=== PATIENT | female | born 1990 | race Asian ===

== ENCOUNTER 2019-07-27 01:59 | Inpatient (IN) ==
[2019-07-27] MEDS ORDERED: OXYTOCIN 30 UNITS/500 ML BAG IV PRN ×2 (03:40→09:41)
[2019-07-27] MEDS ORDERED: PENICILLIN G POTASSIUM 6 MU in DEXTROSE 5% 250 ML IV STA (03:40)
[2019-07-27] MEDS ORDERED: PENICILLIN G POTASSIUM 3 MU in DEXTROSE 5% 100 ML IV SCH (03:45)
[2019-07-27] MEDS: LACTATED RINGER'S 1,000 ML IV PRN ×4 (03:46→11:32)
[2019-07-27] MEDS ORDERED: BUTORPHANOL TARTRATE 1 MG/ML VIAL IV PRN (03:53)
[2019-07-27 04:09] LABS: Hematocrit (blood only) 33.5 % (37-47); Hemoglobin 11.3 g/dL (12.0-16.0); Mean Platelet Volume 10.8 fL (7.4-10.4); Platelet Count 134 K/uL (130-400); RDW Coefficient of Variation 13.7 % (11.5-14.5); RDW Standard Deviation 42.1 fL (36.4-46.3); Red Blood Count 3.94 M/uL (4.2-5.4); White Blood Count 8.01 K/uL (4.8-10.8)
[2019-07-27 04:12] LABS: Mean Corpuscular Hgb Conc 33.7 g/dL (32-36)
[2019-07-27] MEDS ORDERED: BUTORPHANOL TARTRATE 1 MG/ML VIAL ONE (04:17)
[2019-07-27] MEDS ORDERED: BUPIVACAINE 0.25% 30 ML VIAL ONE (04:21)
[2019-07-27] MEDS ORDERED: ePHEDrine sulfate 50 MG/ML AMP ONE (04:22)
[2019-07-27] MEDS ORDERED: fentaNYL 2MCG/ML ROPIV 1.25MG/ML 100 ML BAG EPI ONE (04:22)
[2019-07-27] MEDS ORDERED: fentaNYL citrate 100 MCG/2 ML VIAL ONE (04:22)
--- NOTE | 2019-07-27 04:42 | Anesthesiology Consultation ---
Date of Service July 27, 2019 Assessment & Plan Chart Review Chart Review: Acceptable Risk for Surgery, Patient NOT seen in Pre Admission Testing and Acceptable Risk for Labor Epidural Consults Requested none ASA ASA2 Proposed Anesthesia Anesthesia Type: General and Labor Epidural Risk / Benefits Reviewed With: PT / POA / Parent / Guardian, Accepts Plan and Informed Consent Obtained History Height/Weight Height: 5 ft 6.14 in Weight: 69.853 kg Allergies Allergy/AdvReac Type Severity Reaction Status Date / Time No Known Drug Allergies Allergy NKA Verified 07/27/19 02:40 Medications Home Medications Medication Instructions Recorded Confirmed Last Taken No Known Home Medications 07/07/19 07/27/19 Unknown Active Medications Generic Name Dose Route Start Last Admin Trade Name Freq PRN Reason Stop Dose Admin Lactated Ringer's 1,000 mls @ 125 mls/hr 07/27/19 03:40 07/27/19 03:46 Lr IV 07/29/19 03:39 999 mls/hr .Q8H PRN Administration L&D Protocol Protocol NPO Date Last Intake of Fluids: 07/27/19 Time Last Intake of Fluids: 03:00 Date Last Intake of Solids: 07/26/19 Time Last Intake of Solids: 18:30 Past Medical History Medical History Anemia GERD (gastroesophageal reflux disease) History of varicella Exercise / Class Metabolic Activity II 4-5 Yardwork/Stairs/Walk up hill Past Surgical History Surgical History No history of previous surgery Past Anesthesia History No Hx of Anesthesia Complications and No Family Hx of Anesthesia Complications History of PONV No Hx of PONV and No Hx of Motion Sickness Social History Smoking Status: Never smoker Hx Alcohol Use: No Hx Substance Use: No Physical Exam Vital Signs Last Vital Signs Temp 36.8 C 07/27/19 02:17 Pulse 98 H 07/27/19 04:37 Resp 16 07/27/19 02:15 BP 117/74 07/27/19 04:31 Pulse Ox 94 07/27/19 04:37 Constitutional not obese ENMT Mouth: + small oral opening; no dentition abnormality Thyromental Distance: < 3.5 Finger Breadths Mallampati Class: II Neck normal visual inspection and trachea midline; neck extension not limited Respiratory normal respiratory effort Auscultation: lungs clear to auscultation bilaterally Cardiovascular Rate/Rhythm: regular rate and regular rhythm Heart Sounds: no murmur Musculoskeletal Spine: lumbar spine normal to inspection; normal cervical ROM Neurologic moves all extremities Motor/Sensory: no sensory deficit Psychiatric Orientation: alert and oriented x 3 Testing Laboratory Results 07/27/19 03:58
[2019-07-27] MEDS ORDERED: NALBUPHINE HCL INJ 10 MG/ML AMP IV PRN ×2 (05:07→19:19)
[2019-07-27] MEDS ORDERED: NALOXONE HCL 1 MG in SODIUM CHLORIDE 0.9% 1000ML 1,000 ML IV PRN ×2 (05:07→19:19)
[2019-07-27] MEDS ORDERED: ePHEDrine sulfate 50 MG/ML AMP IV PRN ×2 (05:07→19:19)
[2019-07-27] MEDS ORDERED: DiphenhydrAMINE HCL 50 MG/ML VIAL IV PRN ×3 (05:07→21:20)
[2019-07-27] MEDS ORDERED: fentaNYL 2MCG/ML ROPIV 1.25MG/ML 100 ML BAG EPI PRN (05:07)
[2019-07-27] MEDS ORDERED: NALOXONE HCL 0.4 MG/1 ML VIAL/CARP IV PRN ×2 (05:07→19:19)
[2019-07-27] MEDS ORDERED: ONDANSETRON INJ 2 MG/ML 2 ML VIAL IV PRN (05:07)
[2019-07-27] MEDS ORDERED: PROMETHAZINE HCL 25 MG in SODIUM CHLORIDE 0.9% 50 ML IV PRN (05:07)
[2019-07-27] MEDS ORDERED: CITRIC ACID/SODIUM CITRATE 15 ML UDC PO SCH (06:00)
[2019-07-27] MEDS ORDERED: CEFAZOLIN 2000MG 2,000 MG/15 ML SYR IV SCH (06:00)
[2019-07-27] MEDS: PENICILLIN G POTASSIUM 3 MU in DEXTROSE 5% 100 ML IV PRN ×2 (11:33→15:42)
[2019-07-27] MEDS ORDERED: CITRIC ACID/SODIUM CITRATE 15 ML UDC ONE (18:05)
[2019-07-27] MEDS ORDERED: LACTATED RINGER'S 1,000 ML IV SCH ×3 (18:15→21:20)
[2019-07-27] MEDS ORDERED: LIDOCAINE/EPINEPHRINE 2% 1:200,000 20 ML SDV ONE (18:19)
[2019-07-27] MEDS ORDERED: OXYTOCIN 10 UNITS/ML VIAL ONE ×4 (18:19→19:18)
[2019-07-27] MEDS ORDERED: KETOROLAC 30 MG/ML VIAL ONE (18:19)
[2019-07-27] MEDS ORDERED: ONDANSETRON INJ 2 MG/ML 2 ML VIAL ONE (18:19)
[2019-07-27] MEDS ORDERED: MoRPHine SULFATE PF 1 MG/ML 10 ML AMP/VIAL ONE (18:20)
[2019-07-27] MEDS ORDERED: PHENYLEPHRINE 100MCG/ML 5ML SYR ONE (18:24)
[2019-07-27] MEDS ORDERED: LACTATED RINGER'S 500 ML IV PRN (19:19)
[2019-07-27] MEDS ORDERED: NALOXONE HCL 0.08 MG in SYRINGE 1.8 ML IV PRN (19:19)
[2019-07-27] MEDS ORDERED: HYDROmorphone INJ 0.5 MG/0.5 ML SYR IV PRN (19:19)
[2019-07-27] MEDS ORDERED: MoRPHine SULFATE PF 1 MG/ML 10 ML AMP/VIAL EPI SCH (19:19)
--- NOTE | 2019-07-27 19:26 | Post Operative Brief Note ---
PG Immediate Post Op with CF Date of Surgery July 27, 2019 Pre & Post Diagnosis Operation Date: 07/27/19 18:20 Pre-Op Diagnosis: intolerance to labor failure to descend Post-Op Diagnosis: intolerance to labor failure to descend Procedure Operation Date: 07/27/19 18:20 Actual Procedures p Section in LD, live female child at 1848 - Faby Toribio MD, FACOG Surgeon Faby Toribio MD, FACOG Probation Worker Dr. Akash Stone Estimated Blood Loss 500 Findings Consistent with Post-Op Diagnosis Specimens Specimen Description: 1. Cord Blood 2. Placenta, hold Drains Magaña Catheter
[2019-07-27] MEDS ORDERED: SODIUM CHLORIDE 0.9% 1000ML 1,000 ML IV SCH (19:30)
[2019-07-27] MEDS ORDERED: DC INTRASPINAL MORPHINE SCH (19:30)
[2019-07-27] MEDS ORDERED: NO NARCOTICS OR SEDATIVES SCH (19:30)
--- NOTE | 2019-07-27 20:46 | Anesthesiology Progress Note ---
Date of Service July 27, 2019 Anesthesia Post Procedure Vital Signs Vital Signs: Temp Pulse Resp BP Pulse Ox 07/27/19 20:44 79 91 07/27/19 20:41 78 100 07/27/19 20:37 81 113/62 07/27/19 20:36 82 100 07/27/19 20:31 76 98 07/27/19 20:27 77 110/61 07/27/19 20:26 81 97 07/27/19 20:21 78 98 07/27/19 20:17 75 114/61 07/27/19 20:16 78 99 07/27/19 20:11 83 99 07/27/19 20:07 113/63 07/27/19 20:06 98 H 99 07/27/19 20:01 82 98 07/27/19 20:00 16 07/27/19 19:57 83 109/57 L 07/27/19 19:56 82 99 07/27/19 19:51 82 100 07/27/19 19:50 16 07/27/19 19:47 89 109/51 L 07/27/19 19:46 87 99 07/27/19 19:41 85 100 07/27/19 19:40 36.6 C 86 18 118/56 L 100 07/27/19 19:36 85 118/56 L 100 07/27/19 18:21 91 H 97 07/27/19 18:16 108 H 98 07/27/19 18:14 93 H 125/75 07/27/19 18:11 94 H 98 07/27/19 18:06 106 H 98 07/27/19 18:01 95 H 99 07/27/19 18:00 102 H 120/75 07/27/19 17:56 137 H 100 07/27/19 17:51 124 H 100 07/27/19 17:46 97 H 98 07/27/19 17:44 100 H 120/79 07/27/19 17:41 97 H 100 07/27/19 17:36 120 H 99 07/27/19 17:31 109 H 100 07/27/19 17:30 93 H 115/66 07/27/19 17:29 18 07/27/19 17:26 91 H 99 07/27/19 17:21 102 H 96 07/27/19 17:16 130 H 99 07/27/19 17:15 109 H 117/72 07/27/19 17:11 97 H 98 07/27/19 17:10 103 H 91 07/27/19 17:06 107 H 98 07/27/19 17:04 20 07/27/19 17:01 97 H 99 07/27/19 16:59 95 H 121/74 07/27/19 16:56 129 H 98 07/27/19 16:51 92 H 98 07/27/19 16:50 99 H 92 07/27/19 16:46 111 H 97 07/27/19 16:45 100 H 124/61 07/27/19 16:44 36.6 C 106 H 16 92 07/27/19 16:41 110 H 98 07/27/19 16:36 123 H 98 07/27/19 16:33 115 H 90 07/27/19 16:31 117 H 98 07/27/19 16:29 120 H 123/57 L 07/27/19 16:27 119 H 93 07/27/19 16:26 118 H 95 07/27/19 16:21 123 H 96 07/27/19 16:18 36.8 C 18 07/27/19 16:16 125 H 99 07/27/19 16:15 104 H 118/69 07/27/19 16:11 124 H 97 07/27/19 16:06 118 H 98 07/27/19 16:01 116 H 99 07/27/19 16:00 127 H 121/74 07/27/19 15:56 127 H 99 07/27/19 15:51 110 H 99 07/27/19 15:46 108 H 98 07/27/19 15:44 118 H 132/79 07/27/19 15:41 109 H 97 07/27/19 15:36 121 H 98 07/27/19 15:31 96 H 97 07/27/19 15:30 106 H 127/66 07/27/19 15:26 103 H 98 07/27/19 15:21 107 H 98 07/27/19 15:16 108 H 98 07/27/19 15:15 113 H 130/82 07/27/19 15:13 37.3 C 07/27/19 15:11 104 H 98 07/27/19 15:06 100 H 99 07/27/19 15:01 109 H 99 07/27/19 14:59 96 H 16 124/74 07/27/19 14:56 86 97 07/27/19 14:51 96 H 98 07/27/19 14:46 103 H 97 07/27/19 14:44 100 H 128/78 07/27/19 14:41 79 98 07/27/19 14:36 89 98 07/27/19 14:31 88 98 07/27/19 14:30 95 H 124/79 07/27/19 14:26 98 H 98 07/27/19 14:21 86 97 07/27/19 14:16 94 H 98 07/27/19 14:15 82 126/76 07/27/19 14:11 88 97 07/27/19 14:06 86 98 07/27/19 14:01 88 98 07/27/19 13:59 92 H 16 124/75 07/27/19 13:56 76 98 07/27/19 13:51 86 99 07/27/19 13:46 78 97 07/27/19 13:44 81 114/71 07/27/19 13:41 91 H 98 07/27/19 13:36 82 98 07/27/19 13:31 77 97 07/27/19 13:30 82 16 110/67 07/27/19 13:26 78 97 07/27/19 13:21 75 97 07/27/19 13:16 80 98 07/27/19 13:15 81 109/69 07/27/19 13:11 81 97 07/27/19 13:06 78 97 07/27/19 13:01 85 97 07/27/19 13:00 37.3 C 79 18 109/68 07/27/19 12:56 81 96 07/27/19 12:51 88 98 07/27/19 12:46 80 97 07/27/19 12:44 83 108/63 07/27/19 12:41 80 97 07/27/19 12:36 80 97 07/27/19 12:31 90 98 07/27/19 12:29 88 112/65 07/27/19 12:26 92 H 97 07/27/19 12:21 75 97 07/27/19 12:16 78 96 07/27/19 12:14 74 110/63 07/27/19 12:11 85 96 07/27/19 12:06 79 98 07/27/19 12:01 73 97 07/27/19 12:00 73 18 108/64 07/27/19 11:56 76 98 07/27/19 11:51 73 16 98 07/27/19 11:46 73 98 07/27/19 11:44 85 113/66 07/27/19 11:41 75 97 07/27/19 11:36 86 97 07/27/19 11:31 83 98 07/27/19 11:30 76 114/71 07/27/19 11:26 85 97 07/27/19 11:21 88 98 07/27/19 11:16 83 97 07/27/19 11:15 37.2 C 82 18 110/69 07/27/19 11:11 86 97 07/27/19 11:06 84 98 07/27/19 11:01 87 98 07/27/19 10:59 80 111/67 07/27/19 10:56 87 97 07/27/19 10:51 77 98 07/27/19 10:46 74 98 07/27/19 10:45 76 18 111/68 07/27/19 10:41 78 98 07/27/19 10:36 74 97 07/27/19 10:31 83 98 07/27/19 10:29 82 111/72 07/27/19 10:26 87 98 07/27/19 10:21 91 H 97 07/27/19 10:16 83 99 07/27/19 10:14 91 H 18 120/75 07/27/19 10:11 87 98 07/27/19 10:06 88 98 07/27/19 10:01 89 98 07/27/19 09:59 85 18 106/66 07/27/19 09:56 71 98 07/27/19 09:51 87 97 07/27/19 09:46 89 99 07/27/19 09:45 83 102/58 L 07/27/19 09:41 92 H 98 07/27/19 09:36 89 98 07/27/19 09:31 84 18 98 07/27/19 09:30 74 100/57 L 07/27/19 09:26 83 98 07/27/19 09:21 83 97 07/27/19 09:16 100 H 98 07/27/19 09:14 105 H 92/60 L 07/27/19 09:11 78 98 07/27/19 09:06 83 97 07/27/19 09:01 85 96 07/27/19 09:00 86 18 99/56 L 07/27/19 08:56 94 H 98 07/27/19 08:54 36.7 C 16 07/27/19 08:51 98 H 97 07/27/19 08:46 91 H 98 07/27/19 08:44 100 H 110/67 07/27/19 08:41 82 98 07/27/19 08:36 89 98 07/27/19 08:31 92 H 18 98 07/27/19 08:30 85 111/66 07/27/19 08:26 81 98 07/27/19 08:21 90 97 07/27/19 08:16 87 96 07/27/19 08:15 85 107/62 07/27/19 08:11 91 H 97 07/27/19 08:06 99 H 97 07/27/19 08:01 87 98 07/27/19 07:59 36.8 C 94 H 18 107/65 07/27/19 07:56 92 H 97 07/27/19 07:51 87 97 07/27/19 07:46 80 97 07/27/19 07:44 87 18 103/63 07/27/19 07:41 85 97 07/27/19 07:36 86 98 07/27/19 07:31 81 97 07/27/19 07:29 86 103/65 07/27/19 07:26 98 H 97 07/27/19 07:21 95 H 98 07/27/19 07:17 37.3 C 16 07/27/19 07:16 82 96 07/27/19 07:14 88 96/61 L 07/27/19 07:11 86 98 07/27/19 07:06 75 98 07/27/19 07:01 91 H 97 07/27/19 06:59 97 H 98/64 L 07/27/19 06:56 84 98 07/27/19 06:51 82 97 07/27/19 06:46 85 98 07/27/19 06:45 82 103/63 07/27/19 06:41 96 H 98 07/27/19 06:36 91 H 99 07/27/19 06:31 92 H 98 07/27/19 06:30 89 102/68 07/27/19 06:26 78 98 07/27/19 06:21 83 99 07/27/19 06:16 90 109/66 98 07/27/19 06:11 79 99 07/27/19 06:06 80 97 07/27/19 06:01 90 99 07/27/19 06:00 77 111/66 07/27/19 05:56 82 99 07/27/19 05:51 92 H 99 07/27/19 05:46 81 99 07/27/19 05:44 77 16 104/65 07/27/19 05:41 78 99 07/27/19 05:40 96 H 100/61 07/27/19 05:36 84 105/60 99 07/27/19 05:31 85 100 07/27/19 05:30 79 106/63 07/27/19 05:26 78 100 07/27/19 05:25 75 108/67 07/27/19 05:21 87 100 07/27/19 05:19 74 16 108/65 07/27/19 05:17 72 16 114/72 07/27/19 05:16 77 100 07/27/19 05:15 69 115/74 07/27/19 05:13 75 117/78 07/27/19 05:11 65 113/79 98 07/27/19 05:09 69 114/70 07/27/19 05:08 75 82/49 L 07/27/19 05:06 63 108/54 L 100 07/27/19 05:03 86 16 109/66 07/27/19 05:01 69 112/70 100 07/27/19 04:59 83 115/72 07/27/19 04:58 36.7 C 16 07/27/19 04:57 89 114/71 07/27/19 04:56 81 99 07/27/19 04:55 73 18 114/71 07/27/19 04:53 75 18 126/81 07/27/19 04:51 77 99 07/27/19 04:46 87 100 07/27/19 04:41 79 100 07/27/19 04:37 98 H 94 07/27/19 04:36 88 99 07/27/19 04:31 75 117/74 100 07/27/19 02:17 36.8 C 82 120/80 07/27/19 02:15 16 Pain Intensity Bilateral Abdomen: Pain Intensity: 0 Transfer of Care Handoff Completed per policy Notes Mental Status: alert / awake / arousable Patient Amnestic to Procedure: Yes Nausea / Vomiting: adequately controlled Pain: adequately controlled Airway Patency, RR, SpO2: stable & adequate BP & HR: stable & adequate Hydration State: stable & adequate Neuraxial Anesthesia: was administered and sensory block is resolving Anesthetic Complications: no major complications apparent and Pt Satisfied with anesthetic care
[2019-07-27] MEDS ORDERED: BENZOCAINE 20% AER SPR 82.5 GM CAN EXT PRN (21:20)
[2019-07-27] MEDS ORDERED: SUPERCREAM 0.870% 15 GM JAR EXT PRN (21:20)
[2019-07-27] MEDS ORDERED: DIPHTHERIA/TETANUS/PERTUSSIS 0.5 ML SYR/VIAL IM ONE (21:20)
[2019-07-27] MEDS ORDERED: HYDROCORTISONE ACETATE 25 MG SUPP PR PRN (21:20)
[2019-07-27] MEDS ORDERED: SENNA 8.6 MG TAB PO PRN (21:20)
[2019-07-27] MEDS ORDERED: MAGNESIUM HYDROXIDE SUSP 30 ML UDC PO PRN (21:20)
[2019-07-27] MEDS: OXYTOCIN 20 UNITS in LACTATED RINGER'S 1,000 ML IV SCH (22:29)
--- NOTE | 2019-07-28 00:18 | Operative Report ---
DATE OF OPERATION: 07/27/2019 SURGEON: Faby Ramirez MD SEPTIC TANK SERVICE TECHNICIAN: Dr. Akash Stone, PGY-1. PREOPERATIVE DIAGNOSES: Intrauterine at 40+ weeks, intolerance of labor, failed vacuum attempt and arrest of descent. POSTOPERATIVE DIAGNOSES: Intrauterine at 40+ weeks, intolerance of labor, failed vacuum attempt and arrest of descent, delivery of a viable female infant, 8 pounds 0 ounces, Apgars 8 and 9. PROCEDURE: Primary low transverse section. ANESTHESIA: Epidural. BLOOD LOSS: 500 mL. HISTORY: The patient is a 28-year-old 1, P0, female who had presented in active labor. She received effective epidural analgesia and had membranes ruptured for clear fluid at 6 cm dilated. She progressed to full dilation, and after laboring down, she began to push. After an hour, there was minimal descent of the presenting part, and at this point, tachycardia began with a heart rate from 170-180. It was felt that the vertex was low enough to attempt a vacuum-assisted delivery through 3 contractions without any pop-offs. The vacuum assistance was attempted, but there was no movement of the head. At this point, because of the ongoing tachycardia and arrest of descent, it was felt prudent to proceed with low transverse section. After her and the patient had their questions answered, they were agreeable to this plan of action. GROSS FINDINGS: Uterus is gravid and consistent with a term in size. Bilateral ovaries and fallopian tubes are grossly normal. The infant was in the occiput anterior presentation. DESCRIPTION OF PROCEDURE: After the patient received adequate epidural anesthesia, she was prepped and draped in usual sterile fashion. A low transverse skin incision was made with the scalpel and carried the fascia with the same scalpel. The fascial incision was then extended with Degroot scissors. The edges were then grasped with Maye clamps and the underlying rectus muscle was bluntly and sharply dissected off the overlying fascia. The rectus muscles were bluntly divided on the midline and the underlying peritoneum elevated and entered bluntly. The bladder was then taken down off the anterior surface of the uterus and placed behind the bladder blade. The lower uterine segment was entered with the scalpel and extended transversely. The infant was brought easily out of the pelvis and flexed to deliver through the incision. With moderate fundal pressure, the rest of the infant delivered easily and was crying vigorously upon delivery. After the cord was clamped and cut, the was handed off to Dr. Mcnamara who was in attendance as interpretative dancer. The placenta was then expressed intact with a 3-vessel cord. The uterus exteriorized and covered with a clean lap sponge. Some remaining retained membranes were removed with ring forceps. At this point, the uterine cavity was noted to be clear of any tissue or clot. The uterus was then closed in 2 layers in a running locking imbricating fashion with 0 Monocryl. The posterior cul-de-sac was then irrigated with normal saline. The incision was examined once more and found to have excellent hemostasis. The uterus was then placed back inside the abdominal cavity. Hemostasis continued to be excellent. The gutters were explored and found to be free of any clot or fluid. The anterior cul-de-sac was irrigated with normal saline as well. A few small clots were removed from that area. After ensuring that the incision still continued to have excellent hemostasis, the rectus muscles were brought together on the midline with individual stitches of 0 Monocryl. Fascia was closed in a running fashion with 0 Vicryl. Bleeding in the adipose layer was controlled with the Bovie. After irrigating the adipose layer, the skin edges were reapproximated using a subcuticular stitch of 4-0 Vicryl. Urine was pink when the Magaña was inserted prior to the surgery. It was clearing at the end of the case. Mother and infant were doing well in recovery. I attest to the content of the Intraoperative Record and any orders documented therein. Any exception s are noted below.
[2019-07-28] MEDS: DOCUSATE SODIUM 100 MG CAP PO SCH ×3 (02:00→20:46)
[2019-07-28] MEDS: SIMETHICONE 80 MG CHEW PO SCH ×5 (02:01→20:46)
[2019-07-28] MEDS: KETOROLAC 30 MG/ML VIAL IV PRN ×2 (05:36→12:21)
[2019-07-28] MEDS: OXYTOCIN 20 UNITS in LACTATED RINGER'S 1,000 ML IV SCH (05:51)
--- NOTE | 2019-07-28 07:22 | Obstetrical Progress Note ---
Date of Service <Akash Escalantesteph - Last Filed: 07/28/19 07:24> July 28, 2019 Assessment & Plan <Akash Stone DO - Last Filed: 07/28/19 07:24> (1) delivery delivered: -POD#1 - Patient was converted from a vaginal to delivery secondary to intolerance to labor and failure to descend. - Vitals reviewed, WNL (Tmax 37.1) - GBS +, Blood Type A+ - Clinically stable. - Feels relatively well today. Advance diet as tolerated. Consider D/C anderson later today. - Pain well controlled. - Routine post care - Questions answered this morning. Day #:: 1 Subjective <Akash EscalantenDO - Last Filed: 07/28/19 07:24> Ambulation: limited ambulation Voiding: anderson catheter in place Passing Gas:: Yes Diet Tolerance:: clear liquids Lochia:: Small Feeding Type:: breast feeding Current Pain Level(1-10): 5 (improves with analgesics) Patient is a 28 POD#1. Patient states that she is doing well this morning and that her pain is well controlled. She only notes some pain along the incision line and nipple pain with breast feeding. She has no complaints at this point in time. Constitutional: no fever and no chills Respiratory: no cough, no dyspnea and no wheezing Cardiovascular: + edema; no chest pain, no dyspnea, no dyspnea on exertion and no calf pain Breast: + breast pain (nipple pain with breast feeding) Gastrointestinal: + abdominal pain (along incision line); no nausea and no vomiting Genitourinary (female): no dysuria (anderson catheter in place) Neurologic: no headache(s) Physical Exam <Akash Victorjose carlos Livia Last Filed: 07/28/19 07:24> Constitutional WD/WN, vitals as above Respiratory normal respiratory effort, lungs clear to auscultation Cardiovascular Rate/Rhythm: regular rate and regular rhythm Heart Sounds: normal S1 and normal S2; no click, no gallop, no murmur and no cardiac rub Extremities: no calf tenderness and no edema Gastrointestinal (Abdomen) Inspection/Auscultation: abdomen normal to inspection, normal bowel sounds and + abdominal surgical incision (Clean and Dry, No Pus noted. ) Percussion/Palpation: + abdomen tender (Slightly tender to palpation of lower abdominal quadrants) and abdomen soft Genitourinary OB Exam Abdomen: + fundal height Fundus: + firm and + relation to umbilicus (1cm below ); not tender and not boggy Results & Data <Akash BerthaDO jose carlos - Last Filed: 07/28/19 07:24> Vital Signs (Past 12 Hours) Vital Signs Temp Pulse Pulse Resp BP BP Pulse Ox 07/28/19 06:10 16 94 07/28/19 05:30 16 95 07/28/19 04:20 16 95 07/28/19 03:50 18 96 07/28/19 02:40 16 95 07/28/19 02:10 16 96 07/28/19 01:00 16 95 07/28/19 00:10 18 96 07/27/19 23:25 16 95 07/27/19 22:45 37.1 C 82 18 109/63 95 07/27/19 22:30 18 95 07/27/19 22:11 89 95 07/27/19 22:07 91 H 111/65 07/27/19 22:06 102 H 96 07/27/19 22:01 92 H 96 07/27/19 21:57 95 H 113/67 07/27/19 21:56 92 H 97 07/27/19 21:51 90 96 07/27/19 21:49 102 H 94 07/27/19 21:47 83 113/63 07/27/19 21:46 88 96 07/27/19 21:41 91 H 97 07/27/19 21:40 18 07/27/19 21:37 96 H 111/67 07/27/19 21:36 92 H 96 07/27/19 21:31 80 97 07/27/19 21:27 83 103/58 L 07/27/19 21:26 83 95 07/27/19 21:21 79 96 07/27/19 21:17 77 101/57 L 07/27/19 21:16 78 97 07/27/19 21:11 78 97 07/27/19 21:10 18 07/27/19 21:07 81 102/57 L 07/27/19 21:06 80 98 07/27/19 21:01 74 98 07/27/19 20:57 80 102/58 L 07/27/19 20:56 75 96 07/27/19 20:51 90 98 07/27/19 20:47 87 107/67 07/27/19 20:46 96 H 98 07/27/19 20:44 79 91 07/27/19 20:41 78 100 07/27/19 20:40 36.7 C 18 07/27/19 20:37 81 113/62 07/27/19 20:36 82 100 07/27/19 20:31 76 98 07/27/19 20:30 18 07/27/19 20:27 77 110/61 07/27/19 20:26 81 97 07/27/19 20:21 78 98 07/27/19 20:20 18 07/27/19 20:17 75 114/61 07/27/19 20:16 78 99 07/27/19 20:11 83 99 07/27/19 20:10 16 07/27/19 20:07 113/63 07/27/19 20:06 98 H 99 07/27/19 20:01 82 98 07/27/19 20:00 16 07/27/19 19:57 83 109/57 L 07/27/19 19:56 82 99 07/27/19 19:51 82 100 07/27/19 19:50 16 07/27/19 19:47 89 109/51 L 07/27/19 19:46 87 99 07/27/19 19:41 85 100 07/27/19 19:40 36.6 C 86 18 118/56 L 100 07/27/19 19:36 85 118/56 L 100 Pulse Ox 07/28/19 06:10 07/28/19 05:30 07/28/19 04:20 95 07/28/19 03:50 07/28/19 02:40 07/28/19 02:10 07/28/19 01:00 07/28/19 00:10 07/27/19 23:25 07/27/19 22:45 95 07/27/19 22:30 07/27/19 22:11 07/27/19 22:07 07/27/19 22:06 07/27/19 22:01 07/27/19 21:57 07/27/19 21:56 07/27/19 21:51 07/27/19 21:49 07/27/19 21:47 07/27/19 21:46 07/27/19 21:41 07/27/19 21:40 07/27/19 21:37 07/27/19 21:36 07/27/19 21:31 07/27/19 21:27 07/27/19 21:26 07/27/19 21:21 07/27/19 21:17 07/27/19 21:16 07/27/19 21:11 07/27/19 21:10 07/27/19 21:07 07/27/19 21:06 07/27/19 21:01 07/27/19 20:57 07/27/19 20:56 07/27/19 20:51 07/27/19 20:47 07/27/19 20:46 07/27/19 20:44 07/27/19 20:41 07/27/19 20:40 07/27/19 20:37 07/27/19 20:36 07/27/19 20:31 07/27/19 20:30 07/27/19 20:27 07/27/19 20:26 07/27/19 20:21 07/27/19 20:20 07/27/19 20:17 07/27/19 20:16 07/27/19 20:11 07/27/19 20:10 07/27/19 20:07 07/27/19 20:06 07/27/19 20:01 07/27/19 20:00 07/27/19 19:57 07/27/19 19:56 07/27/19 19:51 07/27/19 19:50 07/27/19 19:47 07/27/19 19:46 07/27/19 19:41 07/27/19 19:40 07/27/19 19:36 Medications Administered Current Inpatient Medications Benzocaine (Dermoplast Pain Relieving [place]) 1 appln EXT UD PRN PRN Reason: use on skin as needed Stop: 08/26/19 21:19 Bisacodyl (Dulcolax) 5 mg PO 2000 [place] Stop: 07/28/19 20:01 Bisacodyl (Dulcolax) 10 mg GA PRN PRN PRN Reason: Constipation Stop: 08/28/19 19:20 Cocaine HCl (Supercream 0.870%) 1 gm EXT UD PRN PRN Reason: hemmorrhoidal inflammation Stop: 08/10/19 21:19 Diphenhydramine HCl (Benadryl) 25 mg IV Q6H PRN PRN Reason: pruritis Stop: 07/28/19 13:19 Diphenhydramine HCl (Benadryl Capsule) 25 mg PO QID PRN PRN Reason: Itching Stop: 08/27/19 13:18 Diphenhydramine HCl (Benadryl) 25 mg IV QID PRN PRN Reason: Itching Stop: 08/27/19 13:18 Docusate Sodium (Colace) 100 mg PO DAILY@08, [facility] [place] Stop: 08/26/19 21:19 Last Admin: 07/28/19 02:00 Dose: Not Given Documented by: Ephedrine Sulfate (Ephedrine Sulfate) 10 mg IV Q5M PRN PRN Reason: Hypotension Stop: 07/28/19 13:19 Ferrous Sulfate (Feosol) 325 mg PO DAILY@08 [facility] [place] Stop: 08/27/19 07:59 Hydrocortisone (Anusol Hc) 25 mg GA BID PRN PRN Reason: Hemorrhoids Stop: 08/26/19 21:19 Hydromorphone HCl (Dilaudid) 0.25 mg IV Q4H PRN PRN Reason: Breakthrough Surgical Pain Stop: 07/28/19 13:20 Lactated Ringer's (Lr) 500 mls @ 999 mls/hr IV .Q31M PRN PRN Reason: Hypotension Stop: 07/28/19 13:19 Naloxone HCl 1 mg/ Sodium (Chloride) 1,002.5 mls @ 50 mls/hr IV .Q20H3M PRN PRN Reason: itching or nausea Stop: 07/28/19 13:19 Naloxone HCl 0.08 mg/ Syringe 2 mls @ 1 mls/min IV Q30M PRN; Protocol PRN Reason: Urinary Retention Stop: 07/28/19 13:19 Sodium Chloride (Nss 1000ml) 1,000 mls @ 15 mls/hr IV .Q24H [place] Stop: 07/28/19 13:19 Lactated Ringer's (Lr) 1,000 mls @ 125 mls/hr IV .Q8H [place] Stop: 08/26/19 21:19 Promethazine HCl 25 mg/ Sodium (Chloride) 51 mls @ 204 mls/hr IV Q4H PRN PRN Reason: Nausea And Vomiting Stop: 08/27/19 13:18 Oxytocin 20 units/ Lactated (Ringer's) 1,002 mls @ 125 mls/hr IV .Q8H1M [place] Stop: 07/28/19 13:21 Last Admin: 07/28/19 05:51 Dose: 125 mls/hr Documented by: Ibuprofen (Motrin) 600 mg PO Q4H PRN PRN Reason: Pain Stop: 08/26/19 21:19 Ketorolac Tromethamine (Toradol) 30 mg IV Q6H PRN PRN Reason: Breakthrough Surgical Pain Stop: 07/28/19 13:20 Last Admin: 07/28/19 05:36 Dose: 30 mg Documented by: Ketorolac Tromethamine (Toradol) 30 mg IV Q6H PRN PRN Reason: Pain Stop: 08/02/19 13:18 Magnesium Hydroxide (Milk Of Magnesia) 30 ml PO HS PRN PRN Reason: Constipation Stop: 08/26/19 21:19 Meperidine HCl (Demerol) 50 - 75 mg IV Q4H PRN PRN Reason: Pain Stop: 08/11/19 13:18 Miscellaneous (No Narcotics Or Sedatives) 1 ea N/A UD [facility] [place] Stop: 07/28/19 13:19 Miscellaneous Information (Dc Intraspinal Morphine) 1 ea N/A UD [facility] [place] Stop: 07/28/19 13:19 Morphine Sulfate (Duramorph Pf) 3.5 mg EPI ONCE [facility] [place] Stop: 07/28/19 13:19 Nalbuphine HCl (Nubain) 5 mg IV Q10M PRN PRN Reason: itching or nausea Stop: 07/28/19 13:19 Naloxone HCl (Narcan) 0.1 mg IV UD PRN PRN Reason: Respiratory Depression Stop: 07/28/19 13:19 Ondansetron HCl (Zofran) 4 mg IV Q4H PRN PRN Reason: Nausea And Vomiting Stop: 08/27/19 13:18 Oxycodone/Acetaminophen (Percocet 5mg/325mg) 1 - 2 tab PO Q4H PRN PRN Reason: Pain Stop: 08/11/19 13:18 Prenat Multivit/Pipe Smoking Machine Offbearer/Iron/Folic Ac ( Vitamin) 1 tab PO DAILY@08 [place] Stop: 08/27/19 07:59 Sennosides (Senokot) 17.2 mg PO HS PRN PRN Reason: Constipation Stop: 08/26/19 21:19 Simethicone (Mylicon) 80 mg PO DAILY@08,13,17,21 [place] Stop: 08/26/19 21:19 Last Admin: 07/28/19 02:01 Dose: Not Given Documented by: Zolpidem Tartrate (Ambien) 5 mg PO HS PRN PRN Reason: Sleep Stop: 08/27/19 13:18 <Faby Toribio MD, FACOG - Last Filed: 07/28/19 08:40> Co-Signing Physician Notes Resident Physician Supervision Note: I interviewed and examined the patient. Discussed with Dr. Stone and agree with findings and plan as documented in the note. Any exceptions or clarifications are listed here: [None] Documented By: Faby Toribio MD, FACOG Resident Activity Tracking <Akash Stone DO - Last Filed: 07/28/19 07:24> Resident Involvement: Resident Care Provided Care Provided: OB Delivery
[2019-07-28 07:33] LABS: Eosinophils # (auto) 0.05 K/uL (0-0.5); Eosinophils % (auto) 0.5 %; Hemoglobin 9.8 g/dL (12.0-16.0); Immature Granulocytes # (auto) 0.01 K/uL (0.00-0.02); Immature Granulocytes % (auto) 0.1 %; Lymphocytes % (auto) 8.3 %; Mean Corpuscular Hgb Conc 33.8 g/dL (32-36); Mean Corpuscular Volume 85.3 fL (80-100); Mean Platelet Volume 9.8 fL (7.4-10.4); Monocytes # (auto) 0.48 K/uL (0.11-0.59); Monocytes % (auto) 4.4 %; Neutrophils # (auto) 9.44 K/uL (1.4-6.5); Neutrophils % (auto) 86.7 %; Platelet Count 100 K/uL (130-400); RDW Coefficient of Variation 13.9 % (11.5-14.5); RDW Standard Deviation 43.2 fL (36.4-46.3); White Blood Count 10.88 K/uL (4.8-10.8)
[2019-07-28] MEDS: FERROUS SULFATE 325 MG TAB PO SCH (09:25)
[2019-07-28] MEDS: PRENATAL VITAMIN 1 TAB PO SCH (09:25)
[2019-07-28] MEDS ORDERED: ZOLPIDEM TARTRATE 5 MG TAB PO PRN (13:19)
[2019-07-28] MEDS ORDERED: PROMETHAZINE HCL 25 MG in SODIUM CHLORIDE 0.9% 50 ML IV PRN (13:19)
[2019-07-28] MEDS ORDERED: MEPERIDINE HCL 50 MG/ML CARP IV PRN (13:19)
[2019-07-28] MEDS ORDERED: DiphenhydrAMINE HCL 50 MG/ML VIAL IV PRN (13:19)
[2019-07-28] MEDS ORDERED: ONDANSETRON INJ 2 MG/ML 2 ML VIAL IV PRN (13:19)
[2019-07-28] MEDS ORDERED: KETOROLAC 30 MG/ML VIAL IV PRN (13:19)
[2019-07-28] MEDS: IBUPROFEN 600 MG TAB PO PRN ×2 (19:17→23:29)
[2019-07-28] MEDS: OXYCODONE/ACETAMINOPHEN 5mg/325mg TAB PO PRN ×2 (19:17→23:30)
[2019-07-28] MEDS ORDERED: BISACODYL 5 MG TABEC PO SCH (20:00)
[2019-07-29] MEDS: IBUPROFEN 600 MG TAB PO PRN ×4 (06:18→20:57)
[2019-07-29] MEDS: OXYCODONE/ACETAMINOPHEN 5mg/325mg TAB PO PRN ×4 (06:19→20:56)
[2019-07-29 07:02] LABS: Hematocrit (blood only) 28.7 % (37-47); Hemoglobin 9.6 g/dL (12.0-16.0)
--- NOTE | 2019-07-29 07:41 | Obstetrical Progress Note ---
Date of Service <Akash Stone DO - Last Filed: 07/29/19 07:41> July 29, 2019 Assessment & Plan <DO Livia Henry Last Filed: 07/29/19 07:41> (1) delivery delivered: -POD#2 - Patient was converted from a vaginal to delivery secondary to intolerance to labor and failure to descend. - Vitals reviewed, WNL (Tmax 3741) - GBS +, Blood Type A+ - Clinically stable. - Feels relatively well today. Tolerating normal diet and voiding well. - Pain well controlled. - Routine post care - Questions answered this morning. Day #:: 2 Subjective <DO Livia Henry Last Filed: 07/29/19 07:41> Ambulation: ambulating normally Voiding: no voiding problems Passing Gas:: Yes (passing stool ) Diet Tolerance:: regular diet Lochia:: Small Feeding Type:: breast feeding Current Pain Level(1-10): 2 (improve with analgesics) Patient is a 28 POD#2. Patient states that she is doing well this morning and that her pain is well controlled. She has no complaints at this point in time. Constitutional: no fever and no chills Respiratory: no cough, no dyspnea and no wheezing Cardiovascular: + edema; no chest pain, no dyspnea, no dyspnea on exertion and no calf pain Breast: + breast pain (nipple pain with breast feeding) Gastrointestinal: + abdominal pain (along incision line); no nausea and no vomiting Genitourinary (female): no dysuria Neurologic: no headache(s) Physical Exam <DO Livia Henry Last Filed: 07/29/19 07:41> Constitutional WD/WN, vitals as above Respiratory normal respiratory effort, lungs clear to auscultation Cardiovascular Rate/Rhythm: regular rate and regular rhythm Heart Sounds: normal S1 and normal S2; no click, no gallop, no murmur and no cardiac rub Extremities: + edema (+1); no calf tenderness Gastrointestinal (Abdomen) Inspection/Auscultation: abdomen normal to inspection, normal bowel sounds and + abdominal surgical incision (Clean and Dry, No Pus noted. ) Percussion/Palpation: + abdomen tender (Slightly tender to palpation of lower abdominal quadrants) and abdomen soft Genitourinary OB Exam Abdomen: + fundal height Fundus: + firm and + relation to umbilicus (2cm below ); not tender and not boggy Results & Data <Akash Stone DO - Last Filed: 07/29/19 07:41> Vital Signs (Past 12 Hours) Vital Signs Temp Pulse Resp BP Pulse Ox 07/28/19 23:30 36.5 C 80 18 105/71 96 Laboratory Results Abnormal lab results 07/29/19 Range/Units 06:23 Hgb 9.6 L (12.0-16.0) g/dL Hct 28.7 L (37-47) % Medications Administered Current Inpatient Medications Benzocaine (Dermoplast Pain Relieving [place]) 1 appln EXT UD PRN PRN Reason: use on skin as needed Stop: 08/26/19 21:19 Bisacodyl (Dulcolax) 10 mg DC PRN PRN PRN Reason: Constipation Stop: 08/28/19 19:20 Cocaine HCl (Supercream 0.870%) 1 gm EXT UD PRN PRN Reason: hemmorrhoidal inflammation Stop: 08/10/19 21:19 Diphenhydramine HCl (Benadryl Capsule) 25 mg PO QID PRN PRN Reason: Itching Stop: 08/27/19 13:18 Diphenhydramine HCl (Benadryl) 25 mg IV QID PRN PRN Reason: Itching Stop: 08/27/19 13:18 Docusate Sodium (Colace) 100 mg PO DAILY@08,21 [facility] Stop: 08/26/19 21:19 Last Admin: 07/28/19 20:46 Dose: 100 mg Documented by: Ferrous Sulfate (Feosol) 325 mg PO DAILY@08 [facility] Stop: 08/27/19 07:59 Last Admin: 07/28/19 09:25 Dose: 325 mg Documented by: Hydrocortisone (Anusol Hc) 25 mg DC BID PRN PRN Reason: Hemorrhoids Stop: 08/26/19 21:19 Lactated Ringer's (Lr) 1,000 mls @ 125 mls/hr IV .Q8H COUNT INCLUDES THE [facility] Stop: 08/26/19 21:19 Promethazine HCl 25 mg/ Sodium (Chloride) 51 mls @ 204 mls/hr IV Q4H PRN PRN Reason: Nausea And Vomiting Stop: 08/27/19 13:18 Ibuprofen (Motrin) 600 mg PO Q4H PRN PRN Reason: Pain Stop: 08/26/19 21:19 Last Admin: 07/29/19 06:18 Dose: 600 mg Documented by: Ketorolac Tromethamine (Toradol) 30 mg IV Q6H PRN PRN Reason: Pain Stop: 08/02/19 13:18 Magnesium Hydroxide (Milk Of Magnesia) 30 ml PO HS PRN PRN Reason: Constipation Stop: 08/26/19 21:19 Meperidine HCl (Demerol) 50 - 75 mg IV Q4H PRN PRN Reason: Pain Stop: 08/11/19 13:18 Ondansetron HCl (Zofran) 4 mg IV Q4H PRN PRN Reason: Nausea And Vomiting Stop: 08/27/19 13:18 Oxycodone/Acetaminophen (Percocet 5mg/325mg) 1 - 2 tab PO Q4H PRN PRN Reason: Pain Stop: 08/11/19 13:18 Last Admin: 07/29/19 06:19 Dose: 1 tab Documented by: Prenat Multivit/[place]/Iron/Folic Ac ( Vitamin) 1 tab PO DAILY@08 [place] Stop: 08/27/19 07:59 Last Admin: 07/28/19 09:25 Dose: 1 tab Documented by: Sennosides (Senokot) 17.2 mg PO HS PRN PRN Reason: Constipation Stop: 08/26/19 21:19 Simethicone (Mylicon) 80 mg PO DAILY@08,13,17,21 [place] Stop: 08/26/19 21:19 Last Admin: 07/28/19 20:46 Dose: 80 mg Documented by: Zolpidem Tartrate (Ambien) 5 mg PO HS PRN PRN Reason: Sleep Stop: 08/27/19 13:18 <Prashant Rowland Jr, MD, FACOG - Last Filed: 07/29/19 07:52> Co-Signing Physician Notes Resident Physician Supervision Note: I was present with Dr. Bautista during the history and exam. I discussed the case with the resident and agree with the findings and plan as documented in the note. Any exceptions or clarifications are listed here: Routine care, encouraged ambulation Documented By: Prashant Rowland Jr, MD, FACOG Resident Activity Tracking <Akash Stone, - Last Filed: 07/29/19 07:41> Resident Involvement: Resident Care Provided Care Provided: OB Delivery
[2019-07-29] MEDS: FERROUS SULFATE 325 MG TAB PO SCH (08:56)
[2019-07-29] MEDS: PRENATAL VITAMIN 1 TAB PO SCH (08:56)
[2019-07-29] MEDS: SIMETHICONE 80 MG CHEW PO SCH ×4 (08:56→20:58)
[2019-07-29] MEDS: DOCUSATE SODIUM 100 MG CAP PO SCH ×2 (08:56→20:57)
[2019-07-29] MEDS ORDERED: BISACODYL 10 MG SUPP PR PRN (19:21)
[2019-07-30] MEDS: OXYCODONE/ACETAMINOPHEN 5mg/325mg TAB PO PRN ×2 (04:44→12:33)
[2019-07-30] MEDS: IBUPROFEN 600 MG TAB PO PRN ×2 (04:44→12:34)
--- NOTE | 2019-07-30 06:42 | Obstetrical Progress Note ---
Date of Service <Akash Stone DO - Last Filed: 07/30/19 06:42> July 30, 2019 Assessment & Plan <DO Livia Henry Last Filed: 07/30/19 06:42> (1) delivery delivered: -POD#3 - Patient was converted from a vaginal to delivery secondary to intolerance to labor and failure to descend. - Vitals reviewed, WNL (Tmax 36.6) - GBS +, Blood Type A+ - Clinically stable. - Feels well today. Tolerating normal diet and voiding well. - Pain well controlled. - Routine post care - Questions answered this morning. - Counseled on discharge, follow up, and medications. Day #:: 3 Subjective <Akash Stone DO - Last Filed: 07/30/19 06:42> Ambulation: ambulating normally Voiding: no voiding problems Passing Gas:: Yes Diet Tolerance:: regular diet Lochia:: Small Feeding Type:: breast feeding Current Pain Level(1-10): 3 (improves with analgesics) Patient is a 28 POD#3. Patient states that she is doing well this morning and that her pain is well controlled. She has no complaints at this point in time. Constitutional: no fever and no chills Respiratory: no cough, no dyspnea and no wheezing Cardiovascular: no chest pain, no dyspnea, no dyspnea on exertion, no edema and no calf pain Breast: no breast pain Gastrointestinal: + abdominal pain (along incision line); no nausea and no vomiting Genitourinary (female): no dysuria Neurologic: no headache(s) Physical Exam <DO Livia Henry Last Filed: 07/30/19 06:42> Constitutional WD/WN, vitals as above Respiratory normal respiratory effort, lungs clear to auscultation Cardiovascular Rate/Rhythm: regular rate and regular rhythm Heart Sounds: normal S1 and normal S2; no click, no gallop, no murmur and no cardiac rub Extremities: no calf tenderness and no edema Gastrointestinal (Abdomen) Inspection/Auscultation: abdomen normal to inspection, normal bowel sounds and + abdominal surgical incision (Clean and Dry, No Pus noted. ) Percussion/Palpation: + abdomen tender (Slightly tender to palpation of lower abdominal quadrants) and abdomen soft Genitourinary OB Exam Abdomen: + fundal height Fundus: + firm and + relation to umbilicus (1cm below ); not tender and not boggy Results & Data <Akash Stone DO - Last Filed: 07/30/19 06:42> Vital Signs (Past 12 Hours) Vital Signs Temp Pulse Resp BP Pulse Ox 07/30/19 00:05 36.4 C L 75 16 96/60 L 97 07/29/19 20:00 36.4 C L 77 16 111/73 97 Laboratory Results Abnormal lab results 07/29/19 Range/Units 06:23 Hgb 9.6 L (12.0-16.0) g/dL Hct 28.7 L (37-47) % Medications Administered Current Inpatient Medications Benzocaine (Dermoplast Pain Relieving [place]) 1 appln EXT UD PRN PRN Reason: use on skin as needed Stop: 08/26/19 21:19 Bisacodyl (Dulcolax) 10 mg [place] PRN PRN PRN Reason: Constipation Stop: 08/28/19 19:20 Cocaine HCl (Supercream 0.870%) 1 gm EXT UD PRN PRN Reason: hemmorrhoidal inflammation Stop: 08/10/19 21:19 Diphenhydramine HCl (Benadryl Capsule) 25 mg PO QID PRN PRN Reason: Itching Stop: 08/27/19 13:18 Diphenhydramine HCl (Benadryl) 25 mg IV QID PRN PRN Reason: Itching Stop: 08/27/19 13:18 Docusate Sodium (Colace) 100 mg PO DAILY@08,21 [facility] Stop: 08/26/19 21:19 Last Admin: 07/29/19 20:57 Dose: 100 mg Documented by: Ferrous Sulfate (Feosol) 325 mg PO DAILY@08 [facility] Stop: 08/27/19 07:59 Last Admin: 07/29/19 08:56 Dose: 325 mg Documented by: Hydrocortisone (Anusol Hc) 25 mg [place] BID PRN PRN Reason: Hemorrhoids Stop: 08/26/19 21:19 Lactated Ringer's (Lr) 1,000 mls @ 125 mls/hr IV .Q8H [facility] Stop: 08/26/19 21:19 Promethazine HCl 25 mg/ Sodium (Chloride) 51 mls @ 204 mls/hr IV Q4H PRN PRN Reason: Nausea And Vomiting Stop: 08/27/19 13:18 Ibuprofen (Motrin) 600 mg PO Q4H PRN PRN Reason: Pain Stop: 08/26/19 21:19 Last Admin: 07/30/19 04:44 Dose: 600 mg Documented by: Ketorolac Tromethamine (Toradol) 30 mg IV Q6H PRN PRN Reason: Pain Stop: 08/02/19 13:18 Magnesium Hydroxide (Milk Of Magnesia) 30 ml PO HS PRN PRN Reason: Constipation Stop: 08/26/19 21:19 Meperidine HCl (Demerol) 50 - 75 mg IV Q4H PRN PRN Reason: Pain Stop: 08/11/19 13:18 Ondansetron HCl (Zofran) 4 mg IV Q4H PRN PRN Reason: Nausea And Vomiting Stop: 08/27/19 13:18 Oxycodone/Acetaminophen (Percocet 5mg/325mg) 1 - 2 tab PO Q4H PRN PRN Reason: Pain Stop: 08/11/19 13:18 Last Admin: 07/30/19 04:44 Dose: 1 tab Documented by: Prenat Multivit/[place]/Iron/Folic Ac ( Vitamin) 1 tab PO DAILY@08 [place] Stop: 08/27/19 07:59 Last Admin: 07/29/19 08:56 Dose: 1 tab Documented by: Sennosides (Senokot) 17.2 mg PO HS PRN PRN Reason: Constipation Stop: 08/26/19 21:19 Simethicone (Mylicon) 80 mg PO DAILY@08,13,17,21 [facility] Stop: 08/26/19 21:19 Last Admin: 07/29/19 20:58 Dose: Not Given Documented by: Zolpidem Tartrate (Ambien) 5 mg PO HS PRN PRN Reason: Sleep Stop: 08/27/19 13:18 <Frances Ibrahim MD, FACOG - Last Filed: 07/30/19 07:57> Co-Signing Physician Notes Resident Physician Supervision Note: I interviewed and examined the patient. Discussed with Dr. Stone and agree with findings and plan as documented in the note. Any exceptions or clarifications are listed here: Doing well. Plan d/c. Instructions given. Documented By: Frances Ibrahim MD, FACOG Resident Activity Tracking <Akash Stone DO - Last Filed: 07/30/19 06:42> Resident Involvement: Resident Care Provided Care Provided: OB Delivery
[2019-07-30] MEDS: PRENATAL VITAMIN 1 TAB PO SCH (08:19)
[2019-07-30] MEDS: FERROUS SULFATE 325 MG TAB PO SCH (08:19)
[2019-07-30] MEDS: DOCUSATE SODIUM 100 MG CAP PO SCH (08:19)
[2019-07-30] MEDS: SIMETHICONE 80 MG CHEW PO SCH ×2 (08:19→15:10)
--- NOTE | 2019-08-01 23:58 | Discharge Summary ---
PRINCIPAL DIAGNOSES: Intrauterine at 40+ weeks, arrest of descent and intolerance of labor. PRINCIPAL PROCEDURE: Primary section with delivery of a viable female , 8 pounds 0 ounces. HISTORY AND HOSPITAL COURSE: The patient is a 28-year-old G1, P0, female who presented in active labor at 40+ weeks. She had received epidural analgesia, which was effective. She progressed to full dilation, and after laboring down, she began to push. For about an hour, there was minimal descent of the presenting part and tachycardia had become persistent. Vacuum-assisted delivery was attempted through 3 contractions without any pop-offs; however, there was no movement of the head. It was felt prudent to move to a section and this was done without any complications. The patient had an uncomplicated postop course. She remained afebrile throughout her hospital stay. She was tolerating regular diet on her 1st postop day, ambulating without difficulty and voiding without difficulty. Hemoglobin on admission was 11.3, hematocrit of 33.5. First postop day, hemoglobin 9.8, hematocrit of 29.0. Second postop day, hemoglobin 9.6, hematocrit 28.7. She was sent home in good condition with prescriptions for Percocet 1-2 tablets p.o. q. 4 hours p.r.n. pain, ibuprofen 600 mg p.o. q. 4-6 hours p.r.n. pain. She is to call for temperature of 101 degrees or higher, heavy vaginal bleeding, burning, redness or drainage from her incision, burning with urination, calf tenderness or any other concerns. She is to be seen in the office in approximately 6 weeks for postop visit.
== END 2019-07-30 14:55 | disposition home or self-care (01) | DRG 788 ==
LOC: OPB 01:59 → 4S1 02:04 → 4S2 22:50